=== PATIENT | male | born 1960 | race African-American/Black ===

== ENCOUNTER 2022-08-26 10:10 | Emergency (ER) | payer MEDICAID ==
[~2022-08-26] VITALS: Ht 177.8 cm; Wt 122.0 kg
[2022-08-26] MEDS ORDERED: IBUPROFEN 800MG TABLET PO ONE (10:30)
[2022-08-26] MEDS ORDERED: IBUPROFEN 400MG TABLET PO NR (10:30)
[2022-08-26] MEDS ORDERED: IBUP-2028 PO (11:59)
[2022-08-26 13:45] VITALS: BP 134/82
== END 2022-08-26 13:47 | disposition home or self-care (01) ==
LOC: ER 10:10
DX: S93.401A Sprain of unspecified ligament of right ankle, initial encounter (principal); I11.0 Hypertensive heart disease with heart failure; I50.9 Heart failure, unspecified; E11.9 Type 2 diabetes mellitus without complications; W50.2XXA Accidental twist by another person, initial encounter; Y93.89 Activity, other specified; Y92.89 Other specified places as the place of occurrence of the external cause; Y99.8 Other external cause status
CPT/HCPCS: 73610; 73620; 99284; Z7610